=== PATIENT | male | born 1985 | race Caucasian/White ===

== ENCOUNTER 2017-11-19 11:39 | Emergency (ER) | payer OTHER ==
[2017-11-19] MEDS ORDERED: OXYCODONE/APAP 5/325 TAB PO ONE (12:54)
--- NOTE | 2017-11-19 12:59 | EDPHY ---
H & P Stated Complaint: right testicle swelling starting last week, getting worse Time Seen by Provider: 11/19/17 12:45 HPI/ROS: CHIEF COMPLAINT: Right testicular pain HISTORY OF PRESENT ILLNESS: The patient is a 32-year-old man with a history of HIV with undetectable viral load who comes to the emergency department complaining of right testicular pain. He states that on Tuesday he was wearing a "cock ring". This was used during sex and wraps around the scrotum and shaft of the penis. He states that he removed it too quickly and caused trauma to his right testicle. He has had pain and swelling ever since. He states that it seemed to improve on but is now increased again. No fever. No penile discharge. No nausea vomiting. No hematuria. REVIEW OF SYSTEMS: Constitutional: denies: chills, fever, recent illness, recent injury EENTM: denies: blurred vision, double vision, nose congestion Respiratory: denies: cough, shortness of breath Cardiac: denies: chest pain, irregular heart rate, lightheadedness, palpitations Gastrointestinal/Abdominal: denies: abdominal pain, diarrhea, nausea, vomiting, blood streaked stools Genitourinary: denies: dysuria, frequency, hematuria, pain Musculoskeletal: denies: joint pain, muscle pain Skin: denies: lesions, rash, jaundice, bruising Neurological: denies: headache, numbness, paresthesia, tingling, dizziness, weakness Hematologic/Lymphatic: denies: blood clots, easy bleeding, easy bruising Immunologic/allergic: denies: HIV/AIDS, transplant EXAM: GENERAL: Well-appearing, well-nourished and in no acute distress. HEAD: Atraumatic, normocephalic. EYES: Pupils equal round and reactive to light, extraocular movements intact, sclera anicteric, conjunctiva are normal. ENT: TMs normal, nares patent, oropharynx clear without exudates. Moist mucous membranes. NECK: Normal range of motion, supple without lymphadenopathy or JVD. LUNGS: Breath sounds clear to auscultation bilaterally and equal. No wheezes rales or rhonchi. HEART: Regular rate and rhythm without murmurs, rubs or gallops. ABDOMEN: Soft, nontender, normoactive bowel sounds. No guarding, no rebound. No masses appreciated. : Right testicle and epididymis significantly swollen, tender, very slight erythema to scrotum, not warm, no rash are no tenderness or swelling to left testicle. No palpable hernia. BACK: No CVA tenderness, no spinal tenderness, step-offs or deformities EXTREMITIES: Normal range of motion, no pitting or edema. No clubbing or cyanosis. NEUROLOGICAL: Cranial nerves II through XII grossly intact. Normal speech, normal gait. 5/5 strength, normal movement in all extremities, normal sensation PSYCH: Normal mood, normal affect. SKIN: Warm, dry, normal turgor, no visible rashes or lesions. Source: Patient Exam Limitations: No limitations - Medical/Surgical History Hx Asthma: Yes Hx Chronic Respiratory Disease: No Hx Diabetes: No Hx Cardiac Disease: No Hx Renal Disease: No Hx Cirrhosis: No Hx Alcoholism: No Hx HIV/AIDS: No Hx Splenectomy or Spleen Trauma: No Other PMH: PSH: Rectal surgery for HPV, lymph node removal (neck); wisdom teeth extraction;. PMH: HIV, asthma - Family History Significant Family History: No pertinent family hx - Social History Smoking Status: Heavy smoker Alcohol Use: Sober Constitutional: Initial Vital Signs Temperature (C) 36.7 C 11/19/17 11:48 Heart Rate 81 11/19/17 11:48 Respiratory Rate 18 11/19/17 11:48 Blood Pressure 171/130 H 11/19/17 11:48 O2 Sat (%) 95 11/19/17 11:48 O2 Delivery Mode Room Air Allergies/Adverse Reactions: sulfamethoxazole [From Bactrim] Allergy (Verified 11/19/17 11:47) trimethoprim [From Bactrim] Allergy (Verified 11/19/17 11:47) Home Medications: Medication Instructions Recorded Descovy 200-25 mg Tablet 11/19/17 Tivicay 11/19/17 Medical Decision Making - Diagnostics Imaging: Discussed imaging studies w/ body recall instructor Radiologist ED Course/Re-evaluation: We discussed the ultrasound results. The patient is relieved. We discussed elevation and ice. He denies any sign of infection. He does not have discharge. He has not had a fever or chills. On exam it does not appear indurated or warm or red. It appears more bruised. We discussed options including blood work and aspiration. At this point we agreed the best course would be to simply observe for the next 48 hr and have her follow up with Urology on Tuesday and return here if he develops fever or worsening symptoms. His HIV is well controlled and he currently has a undetectable viral load. He is not immunocompromised. Differential Diagnosis: Partial list of the Differential diagnosis considered include but were not limited to; contusion, hematoma, testicle fracture and although unlikely based on the history and physical exam, I also considered epididymitis, STD, abscess, forenies gangrene. I discussed these differential diagnoses and the plan with the patient as well as the usual and expected course. The patient understands that the diagnosis is provisional and that in medicine we are not always correct and that further workup is often warranted. Usual and customary warnings were given. All of the patient's questions were answered. The patient was instructed to return to the emergency department should the symptoms at all worsen or return, otherwise to followup with the physician as we discussed. - Data Points Medications Given: Discontinued Medications Oxycodone/Acetaminophen (Percocet 5/325) 2 tab PO EDNOW ONE Stop: 11/19/17 12:55 Last Admin: 11/19/17 13:00 Dose: 2 tab Departure - Departure Disposition: Home, Routine, Self-Care Clinical Impression: Traumatic scrotal hematoma Condition: Fair Instructions: Hematoma (ED) Additional Instructions: Elevate and ice her scrotum as frequently as possible. Return if you develop fever, chills, redness signs of infection. Otherwise follow-up on Tuesday with Urology. Referrals: Dariel Mendoza DO [Primary Care Provider] - As per Instructions Rosita Padilla MD [Medical Doctor] - 1-2 days without fail
[2017-11-19 14:13] VITALS: BP 135/88
== END 2017-11-19 14:17 | disposition home or self-care (01) ==
DX: S30.22XA Contusion of scrotum and testes, initial encounter (principal); B20 Human immunodeficiency virus [HIV] disease; J45.909 Unspecified asthma, uncomplicated; F17.200 Nicotine dependence, unspecified, uncomplicated; X58.XXXA Exposure to other specified factors, initial encounter; Y99.8 Other external cause status; Y93.89 Activity, other specified

== ENCOUNTER 2018-02-20 14:20 | Emergency (ER) | payer OTHER ==
[2018-02-20] MEDS ORDERED: IPRATROPIUM/ALBUTEROL 3 ML DEYVIAL IH ONE (14:38)
--- NOTE | 2018-02-20 14:46 | EDPHY ---
H & P Time Seen by Provider: 02/20/18 14:31 HPI/ROS: This patient presents with 2 week history of a hacking cough. He relates that it started with a typical URI symptoms of nasal congestion and cough and that most of the cold symptoms resolved with the cough has persisted become more intense-more frequent and a deeper cough. He relates that is a dry hacking cough without sputum production and he has developed associated hoarse voice. He also developed dyspnea associated with this over the past few days both at rest and with exertion. He also relates that he often gets wheezing when he has cold and sometimes uses an albuterol inhaler but does not have 1 at this time. He has been taking [id number] cold medications and cold Ng DayQuil and NyQuil. His background medical history is notable for HIV with the good CD4 count last 2 new last year and reports compliance with his HIV medications. He called Dr. Fartun Brandt, his ID specialist doc who recommended he come into the emergency department for evaluation of his symptoms. Smoking Status: Heavy smoker Physical Exam: General Appearance: Moderately obese pleasant male Alert, no distress. Eyes: Pupils equal and round no pallor or injection. ENT, Mouth: Mucous membranes moist. Oropharynx: Mildly hoarse voice without significant erythema or exudates. No stridor. Respiratory: Mild to moderate expiratory wheeze bilaterally. No rales or rhonchi appreciated. Cardiovascular: Regular rate and rhythm. Gastrointestinal: Abdomen is soft and nontender, no masses, bowel sounds normal. Neurological: GCS 15 Skin: Warm and dry, no rashes. Musculoskeletal: Neck is supple nontender. Extremities are symmetrical, full range of motion. Psychiatric: Mood and affect are normal DIFFERENTIAL DIAGNOSIS: After history and physical exam differential diagnosis was considered for bronchitis, URI with reactive airway disease, pneumonia Constitutional: Initial Vital Signs Temperature (C) 37.2 C 02/20/18 14:26 Heart Rate 77 02/20/18 14:26 Respiratory Rate 16 02/20/18 14:26 Blood Pressure 147/91 H 02/20/18 14:26 O2 Sat (%) 93 02/20/18 14:26 O2 Delivery Mode Room Air Allergies/Adverse Reactions: sulfamethoxazole [From Bactrim] Allergy (Unknown, Verified 02/20/18 14:24) Other-Enter Comments trimethoprim [From Bactrim] Allergy (Unknown, Verified 02/20/18 14:24) Other-Enter Comments Home Medications: Medication Instructions Recorded Descovy 200-25 mg Tablet 1 tab PO DAILY@11/19/17 Dolutegravir Sodium [Tivicay] 50 mg PO DAILY@11/19/17 Cholecalciferol Vit D3 [Vitamin D3 2,000 units PO DAILY 11/25/17 2000 units tab (OTC)] Calcium Carbonate [Tums 500MG (*)] 500 mg PO TID PRN tab.chew 11/28/17 Albuterol Hfa Anes Only [Proair 2 puffs IH Q4 PRN #1 mdi 02/20/18 Hfa Icu (*)] Azithromycin [Zithromax] 250 mg PO DAILY #6 tab 02/20/18 Fluticasone Hfa 220 Mcg [Flovent 2 puffs IH DAILY #1 mdi 02/20/18 220 MCG Hfa MDI (*)] MDM/Departure - MDM Diagnostics: Two view chest x-ray: Airway disease otherwise negative. Imaging Results: Imaging Impressions Chest X-Ray 02/20/18 14:39 Impression: Moderate bronchitis. No other findings for acute cardiopulmonary abnormality. Imaging: Discussed imaging studies w/ freight caller Radiologist Medications Given: Discontinued Medications Albuterol/Ipratropium (Duoneb) 3 ml IH EDNOW ONE Stop: 02/20/18 14:39 Last Admin: 02/20/18 14:46 Dose: 3 ml ED Course/Re-evaluation: DuoNeb with resolution of coughing and decreasing wheeze. Patient increased aeration thereafter and felt subjective improvement. I spoke with Dr. Sylvester Cornelius on-call for Dr. Jacinto, patient's ID specialist and Dr. Cornelius was able to relate the patient had a CD4 count of 263 last month and an undetectable viral load thereby effectively ruling him out for any significant opportunistic infection at this time. Will treat him for bronchitis with Zithromax, and reactive airway disease with albuterol and Flovent. We discussed possibility prednisone the patient has done well with inhaled steroids in the past I think this is reasonable choice at this time given lack of significant obstructive findings clinically. - Depart Disposition: Home, Routine, Self-Care Clinical Impression: Laryngitis Acute bronchitis Qualifiers: Bronchitis organism: unspecified organism Qualified Code(s): J20.9 - Acute bronchitis, unspecified Condition: Good Instructions: How to Stop Smoking (ED), Acute Bronchitis (ED) Additional Instructions: Diagnosis: 1. Acute bronchitis 2. Laryngitis Plan: Stop smoking Humidifier Albuterol inhaler with spacer Flovent steroid inhaler Zithromax antibiotic Follow up with Dr. Pan Walker for any ongoing symptoms do not resolve with treatment plan over the course of 7-10 days. Return emergency department for any significant worsening despite treatment plan. Prescriptions: Albuterol Hfa Anes Only [Proair Hfa Icu (*)] 2 puffs IH Q4 PRN #1 mdi PRN Reason: Wheezing Azithromycin [Zithromax] 250 mg PO DAILY #6 tab Fluticasone Hfa 220 Mcg [Flovent 220 MCG Hfa MDI (*)] 2 puffs IH DAILY #1 mdi Referrals: aFrtun Jacinto MD [Primary Care Provider] - As per Instructions
[2018-02-20 15:31] VITALS: BP 151/79
== END 2018-02-20 15:25 | disposition home or self-care (01) ==
LOC: CED 14:20
DX: J20.9 Acute bronchitis, unspecified (principal); Z21 Asymptomatic human immunodeficiency virus [HIV] infection status; F17.200 Nicotine dependence, unspecified, uncomplicated
CPT/HCPCS: 71046-PO